=== PATIENT | male | born 1970 | race Two or more races ===

== ENCOUNTER 2024-09-27 02:39 | Emergency (ER) | payer OTHER ==
[~2024-09-27] VITALS: Ht 167.6 cm; Wt 108.9 kg
[2024-09-27] MEDS ORDERED: HYDRALAZINE HCL25 MG (02:49)
[2024-09-27] MEDS ORDERED: FUROSEMIDE10 MG/1 M1 (02:50)
[2024-09-27] MEDS ORDERED: CARVEDILOL3.125 MG (02:50)
[2024-09-27] MEDS ORDERED: COZAAR25 MG (02:50)
[2024-09-27] MEDS ORDERED: LANOXIN125 MCG (02:51)
[2024-09-27] MEDS ORDERED: ALDACTONE25 MG (03:02)
[2024-09-27] MEDS ORDERED: CARVEDILOL ER40 MG (03:02)
[2024-09-27] MEDS ORDERED: ENALAPRILAT DIHYDRATE 1.25 MG/ML VIAL IV STA (03:13)
[2024-09-27 03:56] LABS: ALT/SGPT 31.0 U/L (12-78); AST/SGOT 27.0 U/L (15-37); BILIRUBIN TOTAL 0.73 mg/dL (0.3-1.2); BUN CREA RATIO 16.0 (7.0-25.0); CREATININE SERUM 1.61 mg/dL (0.70-1.30); GFR 44.61; GLOBULINA 3.5 G/DL (2.4-3.5); GLUCOSE FASTING 127.0 mg/dL (65-100); OSMOLALITY SERUM 284.0 MOSM/KG (275-295)
[2024-09-27 04:29] LABS: BASO % 0.5 % (0.1-1.2); EOS # 0.21 (0.04-0.54); EOS % 2.9 % (0.7-7.0); LYMPH # 3.19 (1.18-3.74); LYMPH % 43.4 % (19.3-53.1); MEAN PLATELET VOLUME 10.10 fl (9.4-12.4); MONO # 0.61 (0.24-0.82); MONO % 8.3 % (4.7-12.5); NEUT # 3.28 (1.56-6.13); NEUT % 44.6 % (34.0-71.1); RED CELL DISTRIBUTION WIDTH 12.9 % (11.6-14.4)
== END 2024-09-27 03:33 | disposition home or self-care (01) ==
LOC: ER 02:39
DX: I10 Essential (primary) hypertension (principal)